=== PATIENT | female | born 1980 | race Caucasian/White ===

== ENCOUNTER 2024-04-08 12:29 | Emergency (ER) | payer BC ==
[2024-04-08] MEDS: Diphtheria,Pertussis(Acell),Tetanus Vaccine 0.5 ML Syringe IM ONE (13:12)
[2024-04-08] MEDS: Lidocaine 1% with EPINEPHrine 1:100,000 20 ML MDV INJECT ONE (13:12)
[2024-04-08] MEDS: Bacitracin Oint 1 GM U/D Packet TOP ONE (13:12)
== END 2024-04-08 13:23 | disposition home or self-care (01) ==
LOC: JP.ED 12:29
DX: S81.811A Laceration without foreign body, right lower leg, initial encounter (principal); Z23 Encounter for immunization; Z79.899 Other long term (current) drug therapy; W26.8XXA Contact with other sharp object(s), not elsewhere classified, initial encounter
CPT/HCPCS: 12002; 90471; 90715; 99282-25